=== PATIENT | female | born 1960 | race Caucasian/White ===

== ENCOUNTER 2019-11-01 11:18 | Inpatient (IN) | payer MEDICAID ==
[~2019-11-01] VITALS: Ht 154.9 cm; Wt 101.4 kg
[~2019-11-01 11:18] MED LIST: ACET500C PO; ATOR40TA52 PO; BECL0.07 IN; BIOTCAP2 PO; CETI1TAB36 PO; CHOL100040 PO; CITA20TA3 PO; FLU05NSL; GABA300C11 PO; HYDR-3682 PO; MAGN250T22 PO; MELA5TAB10 PO; MON10T PO; PANT40TA2 PO; RANI150I PO; SUCR1TAB38 PO; TIOTCAP IN; TRAM50TA2 PO; TRAZ100T2 PO; TRIA50TA2 PO; [UNRECOGNIZED DRUG - CODE] PO; [UNRECOGNIZED DRUG - CODE] PO
[2019-11-01 11:53] LABS: Basophils # (auto) 0.1 uL; Basophils % (auto) 0.8 % (0.0-2.0); Eosinophils # (auto) 0.3 uL; Eosinophils % (auto) 4.3 % (0.0-7.0); Hematocrit 39.6 % (36.0-46.0); Hemoglobin 12.4 g/dL (12.2-16.2); Lymphocytes # (auto) 2.4 uL; Mean Corpuscular Hemoglobin 27.8 pg (28.0-32.0); Mean Corpuscular Hgb Conc. 31.3 g/dL (32.0-36.0); Mean Corpuscular Volume 88.8 fL (80.0-100.0); Monocytes # (auto) 0.5 uL; Monocytes % (auto) 7.2 % (0.0-12.0); Neutrophils # (auto) 3.6 uL; Neutrophils % (auto) 52.7 % (37.0-80.0); Platelet Count (auto) 313 10^3/uL (140-450); Red Blood Cells 4.45 10^6/uL (4.0-5.20); Red Cell Distribution Width 15.9 % (11.8-14.3); White Blood Cell 6.7 10^3/uL (4.4-10.8)
[2019-11-01 12:04] LABS: Albumin 3.6 g/dL (3.4-5.0); Anion Gap 7 (5-15); Blood Urea Nitrogen 12 mg/dL (7-18); Calcium 9.2 mg/dL (8.5-10.1); Carbon Dioxide 32 mmol/L (21-32); Chloride 101 mmol/L (98-107); Glucose 94 mg/dL (74-106); Magnesium 2.2 mg/dL (1.6-2.6); Potassium 3.3 mmol/L (3.5-5.1); Sodium 140 mmol/L (136-145)
[2019-11-01 12:10] LABS: Alanine Aminotransferase 39 U/L (13-56); Alkaline Phosphatase 103 U/L (45-117); Aspartate Aminotransferase 30 U/L (15-37); Bilirubin, Total 0.5 mg/dL (0.2-1.0); GFR African American 80 mL/min; GFR Non-African American 66 mL/min; Total Protein 7.8 g/dL (6.4-8.2)
[2019-11-01] MEDS ORDERED: OXYCODONE W/ ACETAMINOPHEN 5/325MG TABLET PO ONE (14:00)
[2019-11-01] MEDS ORDERED: NITROGLYCERIN 0.4 MG SL TAB SL PRN (15:00)
[2019-11-01] MEDS ORDERED: MORPHINE SULF INJ 2 MG/ML SYRINGE 1ML IV PRN (15:00)
[2019-11-01] MEDS ORDERED: DEXTROSE (50%) 50ML SYRG IV PRN (15:00)
[2019-11-01] MEDS ORDERED: MORPHINE SULFATE 4 MG/ML SYR/VIAL IV PRN (15:00)
[2019-11-01 15:19] VITALS: BP 119/49
[2019-11-01] MEDS: ACCU-CHEK COMFORT CURVE STRIP VI SCH ×2 (17:00→21:43)
[2019-11-01] MEDS: InsuLIN REG 1unit/0.01ml Soln (100units/ml) SC SCH ×2 (17:00→21:42)
[2019-11-01 17:45] VITALS: BP 126/56
[2019-11-01] MEDS: traZODone HCL 50 MG TAB PO SCH (18:00)
[2019-11-01 18:19] VITALS: BP 126/56
[2019-11-01] MEDS: IPRATROPIUM BROM 0.5 MG/2.5ML INH SOL NEB SCH (18:37)
[2019-11-01] MEDS: ALBUTEROL SULF 2.5 MG/0.5ML(0.5%) NEB SOLN NEB SCH (18:37)
[2019-11-01] MEDS: BUDESONIDE (INHALATION) 0.5 MG/2 ML NEB NEB SCH (18:37)
--- NOTE | 2019-11-01 18:57 | NUR ---
PT ARRIVED TO FLOOR FROM ER APPROX. 1730. A/O X 4. VSS. O2 SATS 97 % ON 1 LITER VIA N/C. DENIES PAIN. WILL CONTINUE TO MONITOR.
--- NOTE | 2019-11-01 19:55 | NUR ---
RECEIVED PATIENT IN BED, AAOX4. FRIEND IS IN THE ROOM. NO SOB NOTED. DENIES ANY PAIN NOW. INTRODUCED MYSELF TO EVERYBODY IN THE ROOM. ORIENTATION GIVEN. PATIENT HAS A NECK DRESSING THAT IS ALL CLEAN, DRY AND INTACT. POCS DISCUSSED WITH PATIENT AND SHOWED UNDERSTANDING. BED KEPT ON LOWEST POSITION. SIDE RAILS UP. CALL LIGHT/TABLE IN REACH. KEPT COMFORTABLE.
[2019-11-01] MEDS: MONTELUKAST SODIUM 10 MG TAB PO SCH (21:42)
[2019-11-01] MEDS: OXYCODONE W/ ACETAMINOPHEN 5/325MG TABLET PO PRN (21:43)
[2019-11-01 22:00] VITALS: BP 106/36
[2019-11-02] MEDS: OXYCODONE W/ ACETAMINOPHEN 5/325MG TABLET PO PRN ×3 (03:45→21:52)
[2019-11-02 05:00] VITALS: BP 119/37
--- NOTE | 2019-11-02 05:30 | NUR ---
[facility]SA SWAB SENT TO THE LAB.
[2019-11-02] MEDS: ALBUTEROL SULF 2.5 MG/0.5ML(0.5%) NEB SOLN NEB SCH ×3 (06:00→19:47)
[2019-11-02] MEDS: IPRATROPIUM BROM 0.5 MG/2.5ML INH SOL NEB SCH ×3 (06:00→19:47)
[2019-11-02] MEDS: BUDESONIDE (INHALATION) 0.5 MG/2 ML NEB NEB SCH ×2 (06:00→19:47)
[2019-11-02] MEDS: ACCU-CHEK COMFORT CURVE STRIP VI SCH ×4 (06:06→22:02)
[2019-11-02] MEDS: InsuLIN REG 1unit/0.01ml Soln (100units/ml) SC SCH ×4 (06:06→22:00)
--- NOTE | 2019-11-02 06:35 | NUR ---
ON BED, ASLEEP. STABLE. NO DISTRESS NOTED. FOR MORE CARE AND MANAGEMENT.
[2019-11-02 09:00] VITALS: BP 124/64
[2019-11-02] MEDS: TRIAMTERENE/HCTZ 75/50MG TABLET PO SCH (10:00)
[2019-11-02] MEDS: PANTOPRAZOLE 40 MG TAB PO SCH (10:00)
[2019-11-02] MEDS: GABAPENTIN 300 MG CAP PO SCH (10:00)
[2019-11-02] MEDS: PARoxetine 20 MG TAB PO SCH (10:00)
[2019-11-02] MEDS: ATORVASTATIN 20 MG TAB PO SCH (10:01)
[2019-11-02 13:00] VITALS: BP 142/61
--- NOTE | 2019-11-02 13:30 | NUR ---
PT REPORTS THAT SHE WALKS FINE AND DOES NOT NEED P.T.
[2019-11-02] MEDS ORDERED: IPRATROPIUM BROM 0.5 MG/2.5ML INH SOL NEB PRN (14:30)
[2019-11-02] MEDS ORDERED: ALBUTEROL SULF 2.5 MG/0.5ML(0.5%) NEB SOLN NEB PRN (14:30)
[2019-11-02] MEDS ORDERED: LEVOFLOXACIN 500MG 100 ML IV ONE (14:45)
[2019-11-02] MEDS ORDERED: guaiFENesin-DM 100/10mg/5ml SYR PO PRN (14:45)
[2019-11-02] MEDS ORDERED: MORPHINE SULF INJ 2 MG/ML SYRINGE 1ML IV PRN (15:15)
[2019-11-02 17:24] VITALS: BP 129/70
--- NOTE | 2019-11-02 17:49 | NUR ---
RECEIVED CALL FROM LAB PT POSITIVE FOR MRSA IN [place]AR[place]. DR PEDRAZA NOTIFIED. PT PLACED ON CONTACT PRECAUTIONS AND BACTROBAN ORDERED.
[2019-11-02] MEDS: traZODone HCL 50 MG TAB PO SCH (18:21)
--- NOTE | 2019-11-02 19:12 | NUR ---
RT NOTE PT WAS SEEN BY RT FOR HHN TX. PT EATING EVENING MEAL. NO TREATMENT AT THIS TIME. RT WILL RETURN
--- NOTE | 2019-11-02 19:40 | NUR ---
Opening Shift Note Assumed care of patient, awake and alert. No S/S of distress/SOB or pain. Instructed on POC and to call for assist PRN, will continue to monitor for changes Q1hr and PRN.
--- NOTE | 2019-11-02 19:47 | NUR ---
RT NOTE PT WAS SEEN BY RT FOR HHN TX. PT TOLERATES WELL VIA MASK. NO ADVERSE REACTION NOTED. CONT ORDERED. Addendum: 11/02/19 at 1954 by Kayla Quigley RT Amended: Links added.
[2019-11-02 22:00] VITALS: BP 135/73
[2019-11-02] MEDS: MUPIROCIN 2% OINT 15gm or 22gm EACHNOSTRI SCH (22:03)
[2019-11-02] MEDS: methylPREDNISolone SOD SUCC 40 MG/ML VL IV SCH (22:03)
[2019-11-02] MEDS: MONTELUKAST SODIUM 10 MG TAB PO SCH (22:03)
[2019-11-03 05:00] VITALS: BP 119/51
[2019-11-03] MEDS: IPRATROPIUM BROM 0.5 MG/2.5ML INH SOL NEB SCH ×3 (06:11→18:46)
[2019-11-03] MEDS: ALBUTEROL SULF 2.5 MG/0.5ML(0.5%) NEB SOLN NEB SCH ×3 (06:11→18:46)
[2019-11-03] MEDS: BUDESONIDE (INHALATION) 0.5 MG/2 ML NEB NEB SCH ×2 (06:12→18:46)
[2019-11-03 07:09] LABS: Calcium 9.1 mg/dL (8.5-10.1); Magnesium 2.1 mg/dL (1.6-2.6); Potassium 3.9 mmol/L (3.5-5.1)
[2019-11-03] MEDS: InsuLIN REG 1unit/0.01ml Soln (100units/ml) SC SCH ×4 (07:09→23:04)
[2019-11-03] MEDS: ACCU-CHEK COMFORT CURVE STRIP VI SCH ×4 (07:09→21:53)
[2019-11-03 07:12] LABS: BUN/Creatinine Ratio 14.3
--- NOTE | 2019-11-03 07:15 | NUR ---
Report given to oncoming RN.
[2019-11-03] MEDS: OXYCODONE W/ ACETAMINOPHEN 5/325MG TABLET PO PRN ×3 (07:45→20:28)
[2019-11-03 09:00] VITALS: BP 136/67
[2019-11-03] MEDS: LEVOFLOXACIN 500MG 100 ML IV SCH (09:46)
[2019-11-03] MEDS: methylPREDNISolone SOD SUCC 40 MG/ML VL IV SCH ×2 (09:46→21:53)
[2019-11-03] MEDS: MUPIROCIN 2% OINT 15gm or 22gm EACHNOSTRI SCH ×2 (09:47→21:53)
[2019-11-03] MEDS: ENOXAPARIN SOD 40 MG/0.4 ML SYRINGE SC SCH (09:48)
[2019-11-03] MEDS: PARoxetine 20 MG TAB PO SCH (09:48)
[2019-11-03] MEDS: ATORVASTATIN 20 MG TAB PO SCH (09:48)
[2019-11-03] MEDS: PANTOPRAZOLE 40 MG TAB PO SCH (09:48)
[2019-11-03] MEDS: GABAPENTIN 300 MG CAP PO SCH (09:48)
[2019-11-03] MEDS: TRIAMTERENE/HCTZ 75/50MG TABLET PO SCH (10:00)
[2019-11-03] MEDS: SODIUM CHLORIDE 0.9% 1,000 ML IV SCH (12:30)
[2019-11-03 13:00] VITALS: BP 142/79
[2019-11-03] MEDS ORDERED: IOHEXOL 350 MG/ML 100ML IJ ONE (14:46)
[2019-11-03 17:00] VITALS: BP 120/59
[2019-11-03] MEDS: traZODone HCL 50 MG TAB PO SCH (18:02)
--- NOTE | 2019-11-03 19:16 | NUR ---
Opening Shift Note Report received from Lea. Assumed care of patient. Patient is awake, alert, orientated x 4. No S/S of distress/SOB or pain. Bed is in lowest position and call light is with in reach. Bed brakes are locked and side rails up x 2. Hob is 30 degrees. C-collar is off. Dressing on neck is clean, dry and intact. Instructed on POC and to call for assist PRN, will continue to monitor for changes Q1hr and PRN.
[2019-11-03 20:00] VITALS: BP 124/64
[2019-11-03 21:00] VITALS: BP 129/49
[2019-11-03] MEDS: MONTELUKAST SODIUM 10 MG TAB PO SCH (21:53)
[2019-11-04] VITALS (7 sets, daily range): BP systolic 119–126; BP diastolic 53–75
[2019-11-04] MEDS: OXYCODONE W/ ACETAMINOPHEN 5/325MG TABLET PO PRN ×2 (05:47→14:21)
[2019-11-04] MEDS: ACCU-CHEK COMFORT CURVE STRIP VI SCH ×3 (05:57→17:00)
[2019-11-04] MEDS: InsuLIN REG 1unit/0.01ml Soln (100units/ml) SC SCH ×3 (05:57→17:00)
[2019-11-04] MEDS: ALBUTEROL SULF 2.5 MG/0.5ML(0.5%) NEB SOLN NEB SCH ×2 (05:58→11:19)
[2019-11-04] MEDS: BUDESONIDE (INHALATION) 0.5 MG/2 ML NEB NEB SCH (05:58)
[2019-11-04] MEDS: IPRATROPIUM BROM 0.5 MG/2.5ML INH SOL NEB SCH ×2 (05:58→11:19)
[2019-11-04 06:19] LABS: Potassium 4.1 mmol/L (3.5-5.1)
[2019-11-04 06:26] LABS: BUN/Creatinine Ratio 17.7
--- NOTE | 2019-11-04 07:11 | NUR ---
CLOSING NOTES ENDORSED CARE TO DAY SHIFT NURSESOHAIL.
--- NOTE | 2019-11-04 08:30 | NUR ---
Opening Shift Note Received report on the patient. Awake lying in bed. Patient shows no signs of distress at this time. Discussed plan of care with the patient. Bed in lowest position, side rails up x2, and the call light is within reach. Will continue to monitor.
[2019-11-04] MEDS: TRIAMTERENE/HCTZ 75/50MG TABLET PO SCH (10:00)
[2019-11-04] MEDS: LEVOFLOXACIN 500MG 100 ML IV SCH (10:45)
[2019-11-04] MEDS: ATORVASTATIN 20 MG TAB PO SCH (10:45)
[2019-11-04] MEDS: ENOXAPARIN SOD 40 MG/0.4 ML SYRINGE SC SCH (10:45)
[2019-11-04] MEDS: GABAPENTIN 300 MG CAP PO SCH (10:46)
[2019-11-04] MEDS: PARoxetine 20 MG TAB PO SCH (10:46)
[2019-11-04] MEDS: MUPIROCIN 2% OINT 15gm or 22gm EACHNOSTRI SCH (10:46)
[2019-11-04] MEDS: PANTOPRAZOLE 40 MG TAB PO SCH (10:46)
[2019-11-04] MEDS: SODIUM CHLORIDE 0.9% 1,000 ML IV SCH (10:47)
[2019-11-04] MEDS: methylPREDNISolone SOD SUCC 40 MG/ML VL IV SCH (10:47)
[2019-11-04] MEDS ORDERED: FLUT100M IN (14:30)
[2019-11-04] MEDS ORDERED: MAX7550T PO (14:30)
[2019-11-04] MEDS ORDERED: PRED20TA2 PO (14:30)
[2019-11-04] MEDS ORDERED: PANT40T PO (14:30)
[2019-11-04] MEDS ORDERED: DEXT1SYP9 PO (14:30)
[2019-11-04] MEDS ORDERED: MONT10TA23 PO (14:30)
[2019-11-04] MEDS ORDERED: ALBU108A5 IN (14:30)
[2019-11-04] MEDS ORDERED: GABA300C10 PO (14:30)
[2019-11-04] MEDS ORDERED: TRAZ50TA2 PO (14:30)
[2019-11-04] MEDS ORDERED: AZIT500T66 PO (14:30)
[2019-11-04] MEDS ORDERED: ATOR20TA50 PO (14:30)
[2019-11-04] MEDS ORDERED: PAR20T PO (14:30)
--- NOTE | 2019-11-04 16:13 | NUR ---
Discharge While discharging the patient, she informed me that she was supposed to resume home health services from [facility]. Put in a social media designer consult to resume home health.
--- NOTE | 2019-11-04 17:57 | NUR ---
Discharge planning per consult, patient has orders to resume home health with [facility]. Referral faxed for resumption. Addendum: 11/04/19 at 1758 by DEVON ZARINA SS Amended: Links added. Addendum: 11/07/19 at 1137 by DEVON ZARINA SS Auth obtained [id number], called and provided to Daiana at [facility].
[2019-11-04] MEDS: traZODone HCL 50 MG TAB PO SCH (18:00)
== END 2019-11-04 18:14 | disposition home health service (06) | DRG 141 ==
LOC: ER 11:18 → EDBD 11:18 → TELE 11:19 → TELE-EAST 17:22
PROVIDERS: ADMIT Nurse Practitioner Acute Care; ATTEND Hospitalist
DX: J45.901 Unspecified asthma with (acute) exacerbation (principal); J96.00 Acute respiratory failure, unspecified whether with hypoxia or hypercapnia; J20.9 Acute bronchitis, unspecified; Z68.41 Body mass index [BMI] 40.0-44.9, adult; K21.9 Gastro-esophageal reflux disease without esophagitis; E11.9 Type 2 diabetes mellitus without complications; E66.9 Obesity, unspecified; F41.9 Anxiety disorder, unspecified; I10 Essential (primary) hypertension; E78.5 Hyperlipidemia, unspecified; G89.29 Other chronic pain; E78.00 Pure hypercholesterolemia, unspecified; K59.00 Constipation, unspecified; M54.9 Dorsalgia, unspecified; Z86.73 Personal history of transient ischemic attack (TIA), and cerebral infarction without residual deficits; Z98.51 Tubal ligation status; Z82.49 Family history of ischemic heart disease and other diseases of the circulatory system; Z79.891 Long term (current) use of opiate analgesic; Z83.3 Family history of diabetes mellitus; Z79.899 Other long term (current) drug therapy
CPT/HCPCS: 36415; 71045; 71275; 80048; 80053; 80061; 82962; 83036; 83735; 83880; 84443; 84484; 85025; 85379; 87081; 93005; 94640; 96365; G0378; J1815; J1956